=== PATIENT | male | born 1990 | race Caucasian/White ===

== ENCOUNTER 2017-07-02 15:00 | Inpatient (IN) | payer OTHER ==
[~2017-07-02] VITALS: Ht 177.8 cm; Wt 65.8 kg
--- NOTE | ~2017-07-02 | PN ---
Unit #: [id number] #: [id number] Patient: JULIANNE BETANCOURT [id number] [facility] [address] [place] [address] [id number] I MR#: [id number] NAME: JULIANNE BETANCOURT ROOM: [facility] Age: 26 Sex: M Admission Date: 07/02/2017 : 1990 Attending Physician: Conchis Hernandez M.D. Admitting Physician: Conchis Hernandez M.D. Primary Care Physician: Generic Doctor Not In System [facility] PROGRESS NOTES DATE July 05, 2017 DISCUSSION Mr. Betancourt is a 26-year-old white male, who was seen today and chart was reviewed and the case was discussed with the staff. He has been anxious, withdrawn, but has not shown any agitation, irritability, or behavioral problems, and has been compliant with the treatment recommendations and he has been taking the medications and tolerating them fairly well with no reported side effects. MENTAL STATUS EXAMINATION Young white male, who was casually dressed with fair personal hygiene and appears to be in no acute distress or discomfort. He was awake and alert with intact orientation. His mood is anxious with a congruent affect. His speech is slow and goal-directed. He denies any suicidal or homicidal ideations. His insight and judgment remain slightly impaired. TREATMENT PLAN 1. We will continue him on his current medications and treatment protocol, and will monitor his response to the medications, and make further adjustments as needed. 2. We will continue to followup. Dictated by... Fani Barr/lyssa TD: 07/06/2017 07:21 JOB #: [id number] Unit #: [id number] #: [id number] Patient: JULIANNE BETANCOURT [facility] PROGRESS NOTES Page 1 of 1 X Conchis Hernandez MD PROGRESS NOTE
--- NOTE | ~2017-07-02 | HP ---
Unit #: [id number] #: [id number] Patient: STEVE BETANCOURT [id number] [facility] [address] [place] [address] [id number] I MR#: [id number] NAME: STEVE BETANCOURT ROOM: P110 Age: 26 Sex: M Admission Date: 07/02/2017 : 1990 Attending Physician: Conchis Hernandez M.D. Admitting Physician: Conchis Hernandez M.D. Primary Care Physician: Generic Doctor Not In System HISTORY AND PHYSICAL HISTORY OF PRESENT ILLNESS Steve is a 26 year old, admitted to [address] [place] [address] because of his poly illicit substance abuse which includes benzodiazepines, amphetamines, methadone, and spice. PAST MEDICAL HISTORY Long history of illicit substance abuse. PAST SURGICAL HISTORY Nothing reported. ALLERGIES No known drug allergies. SOCIAL HISTORY He smokes one pack per day, drinks alcohol frequently, has a long history of illicit substance abuse. FAMILY HISTORY Medically noncontributory. REVIEW OF SYSTEMS CONSTITUTIONAL: No fever or chills. HEENT: Denies any sore throat, ear pain or runny nose. CARDIOVASCULAR: Denies chest pain, irregular heart rhythm or palpitations. CHEST: Denies shortness of breath or cough. No hemoptysis. GASTROINTESTINAL: Denies nausea, vomiting, diarrhea or chronic constipation. ENDOCRINE: Denies history of increased thirst or urination. No recent significant weight loss or gain. GENITOURINARY: Denies dysuria, frequency, or hematuria. SKIN: Denies any rashes. HEMATOLOGIC: Denies history of increased bleeding or bruising. MUSCULOSKELETAL: Denies any hot, swollen joints. No generalized muscle pain. NEUROLOGIC: Denies problems with vision or speech. No frequent, severe headaches. No numbness, tingling or weakness in any extremities. Denies loss of bladder or bowel control. CURRENT MEDICATIONS Detox protocol PHYSICAL EXAMINATION Unit #: [id number] #: [id number] Patient: STEVE BETANCOURT GENERAL: Alert, well-nourished, no apparent distress. VITAL SIGNS: blood pressure 120/64, heart rate 92, respirations 16, and temperature 98.6. WEIGHT: 145 pounds. HEIGHT: 5 feet 10 inches. SKIN: Warm and dry without rash or lesion. HEENT: Normocephalic. TMs not viewed. Oral and nasal passages clear. Conjunctivae clear. PERRLA. EOMs intact. NECK: Supple without lymphadenopathy or thyromegaly. HEART: Regular rate and rhythm without murmur. LUNGS: Clear. ABDOMEN: Soft, nontender. : Not done. EXTREMITIES: No evidence of cyanosis, clubbing or edema. Moves all without focal deficit. NEUROLOGICAL: Grossly within normal limits. Cranial Nerves: II: Visual mcnulty are intact. III, IV AND : Extraocular movements are intact. Pupils are equal, round and reactive to light. V: Facial sensation is grossly normal. VII: Facial movements and expression are normal. VIII: Auditory acuity grossly intact. IX, X: Uvula is midline. Phonation is normal. XI: Patient shrugs shoulders and turns head normally. XII: Tongue protrudes in the midline. Sensory and Motor Function: Sensory and motor sensation is grossly normal. Motor: moves all extremities well. Coordination: Gait is normal. Deep Tendon Reflexes: Intact. IMPRESSION Psychiatric admission. RECOMMENDATIONS Psychiatric, per psychiatrist. MEDICAL I see no contraindications to participating in facility's activities. MEDICAL PROGNOSIS Good. MEDICAL CONDITION Stable. Dictated by... Molly Cooper P.A.-C. for Fani Guzman/lyssa TD: 07/04/2017 06:35 JOB #: [id number] Unit #: [id number] #: [id number] Patient: STEVE BETANCOURT HISTORY AND PHYSICAL Page 1 of 1 X Molly Cooper HISTORY AND PHYSICAL
--- NOTE | ~2017-07-02 | PA ---
Unit #: [id number] #: [id number] Patient: JULIANNE BETANCOURT [id number] [facility] [address] [place] [address] [id number] I MR#: [id number] NAME: JULIANNE BETANCOURT ROOM: P110 Age: 26 Sex: M Admission Date: 07/02/2017 : 1990 Date of Assessment: Attending Physician: Conchis Hernandez M.D. Admitting Physician: Conchis Hernandez M.D. Primary Care Physician: Enedina Doctor Not In System PSYCHIATRIC ASSESSMENT DATE OF SERVICE 07/03/2017. IDENTIFYING DATA Mr. Betancourt is a 26-year-old single white male, who is a resident of [place], [place], and was self-referred to the hospital on a voluntary basis. CHIEF COMPLAINT "I'm not going to have a life if I keep going." HISTORY OF PRESENT ILLNESS Mr. Betancourt is a 26-year-old white male with history of mood disorder and substance abuse, who came to the hospital stating that he is ready to make a change because he is about to lose everything that he and his were due to his drug use and "I'm not going to have a life if I keep going," and the patient reports he is grieving and has almost failed marriage and lost about 20 to 30 friends due to his drug related issues in the past couple of years and does endorse increasing depression, anxiety, irritability, restlessness, poor energy level, psychomotor retardation, feelings of hopelessness and helplessness, and suicidal ideations and as such, recommendation for inpatient level of care for safety and stabilization was made. The patient was stepped up to the inpatient unit. SUBSTANCE ABUSE HISTORY The patient reports extensive history of substance abuse and dependence stating that he started with cannabis at the age of 9 and since then, he has done alcohol, cannabis, cocaine, acid, opioids, inhalants, amphetamines, benzodiazepines, synthetic drugs, and methadone, and currently, he reports that he has been using benzodiazepines including Xanax and Klonopin and Adderall as well as inhalants and has been using 3 to 4 g of cocaine as well and as such, has been decompensating. PAST PSYCHIATRIC HISTORY The patient has had history of chemical dependency treatment at [facility] in the past. Review of the medical records indicate currently is not active in treatment program, is not seeing a psychiatrist, and not taking psychotropic medications. PAST MEDICAL HISTORY No acute or chronic medical illnesses. ALLERGIES Unit #: [id number] #: [id number] Patient: JULIANNE BETANCOURT No known medication allergies. CURRENT MEDICATIONS None. PERSONAL AND SOCIAL HISTORY A 26-year-old white male, who reports that he is and and has poor social support system. MENTAL STATUS EXAMINATION Young white male, who was casually dressed with fair personal hygiene, appears to be in no acute distress or discomfort. He was awake and alert on interaction with intact orientation to time, place, and person. His mood was anxious and depressed with a congruent affect. His speech was slow and restricted in content. He reports having suicidal or homicidal ideations and also denies any auditory or visual hallucinations. His insight and judgment remain significantly impaired. DIAGNOSTIC IMPRESSION Psychiatric: Benzodiazepine dependence, moderate, and acute withdrawals; cocaine dependence, moderate; cannabis dependence, moderate; amphetamine dependence, moderate. Benzodiazepine-induced mood disorder. Medical: None. Stressors: Moderate psychosocial stressors. TREATMENT PLAN 1. The patient has presented with history of substance abuse and mood disorder, and has been decompensating and will need inpatient hospitalization for safety and stabilization. We will start him back on his home medications. We will adjust the medications and monitor response. 2. Supportive therapy was provided to the patient. 3. Safe, structured, and nourishing environment will be reported. ESTIMATED LENGTH OF STAY 5 to 7 days. ABILITY TO HELP SELF Limited. WILLINGNESS TO HELP SELF The patient appears to be willing to help self. STRENGTHS 1. Communicative. 2. Cooperative. PROBLEMS 1. Chronic dysphoric symptoms. 2. Chronic chemical dependency. 3. Poor social support system. DISCHARGE CRITERIA This will be contingent upon the patient's ability to show resolution of his depression and anxiety and his ability to stay safe to himself, particularly after discharge from the hospital. Dictated by... Unit #: [id number] #: [id number] Patient: JULIANNE BETANCOURT Fani Barr/eileen TD: 07/03/2017 07:16 JOB #: [id number] PSYCHIATRIC ASSESSMENT Page 1 of 1 X Conchis Hernandez MD PSYCHIATRIC ASSESSMENT
--- NOTE | ~2017-07-02 | PN ---
Unit #: [id number] #: [id number] Patient: JULIANNE BETANCOURT [id number] [facility] [address] [place] [address] [id number] MR#: [id number] NAME: JULIANNE BETANCOURT ROOM: [facility] Age: 26 Sex: M Admission Date: 07/02/2017 : 1990 Attending Physician: Conchis Hernandez M.D. Admitting Physician: Conchis Hernandez M.D. Primary Care Physician: Generic Doctor Not In System [facility] PROGRESS NOTES DATE OF SERVICE: 07/04/2017 SUBJECTIVE Mr. Betancourt is a 26-year-old male who was seen today and chart reviewed and discussed with the staff. He has been anxious, withdrawn and seclusive to himself, but cooperative with treatment recommendations and has been taking the medications and tolerating them fairly well with no reported side effects. MENTAL STATUS EXAMINATION Young white male, who was casually dressed with fair personal hygiene. He was awake and alert with intact orientation. His mood was anxious with a congruent affect. He denies any suicidal or homicidal ideations . TREATMENT PLAN 1. We will continue on his current medications and treatment protocol. . 2. We will continue to follow up. Dictated by... Fani Barr/eileen TD: 07/05/2017 04:20 JOB #: [id number] [facility] PROGRESS NOTES Page 1 of 1 X Conchis Hernandez MD PROGRESS NOTE
[2017-07-03 09:37] LABS: BASOPHIL% 0.5 % (0-2.5); EOSINOPHIL# 0.1 X10e3 (0-0.7); EOSINOPHIL% 1.4 % (0.0-7.0); HEMATOCRIT 45.3 % (38.0-50.0); HEMOGLOBIN 15.3 gm/dL (13.0-16.0); LYMPHOCYTE# 1.6 X10e3 (1.0-3.5); LYMPHOCYTE% 30.8 % (17.0-45.0); MEAN CELL VOLUME 89.6 FL (83-96); MEAN CORPUSCULAR HEMOGLOBIN 30.3 PG (28-34); MEAN CORPUSCULAR HGB CONC 33.8 g/dL (30-36); MEAN PLATELET VOLUME 8.9 FL (6.5-11.5); MONOCYTE# 0.5 X10e3 (0-1.0); MONOCYTE% 9.6 % (3.0-12.0); NEUTROPHIL# 2.9 X10e3 (1.5-7.1); NEUTROPHIL% 57.7 % (40-75); PLATELET COUNT 211 X10e3 (140-420); RED BLOOD COUNT 5.06 X10e (3.90-5.60); RED CELL DISTRIBUTION WIDTH 13.5 % (11.0-15.5)
[2017-07-03 09:42] LABS: DIFF IND NO
[2017-07-03 11:04] LABS: ALBUMIN SERUM 4.2 g/dL (3.5-5.0); BILIRUBIN,TOTAL 0.2 mg/dL (0.2-2.0); BUN/CREATININE RATIO 12.22; CALCIUM SERUM 9.3 mg/dL (8.4-10.2); CREATININE SERUM 0.9 mg/dL (0.6-1.4); GLOM FILT RATE Estimated 116.6 mL/min (>60); POTASSIUM 4.7 mmol/L (3.5-5.1); PROTEIN TOTAL SERUM 6.7 g/dL (6.0-8.3)
[2017-07-06 21:13] LABS: HA AB IGM (HEPPAN) Nonreactive (()); HB CORE AB IGM (HEPPAN) Nonreactive (Nonreactive); HB S AG (HEPPAN) Nonreactive (Nonreactive); HEP C AB (HEPPAN) Reactive (Nonreactive)
== END 2017-07-05 11:45 | disposition home or self-care (01) | DRG 897 ==
LOC: P1S 17:49
PROVIDERS: Psychiatry & Neurology Psychiatry
PROC: HZ2ZZZZ Detoxification Services for Substance Abuse Treatment (ICD-10-PCS; principal; 2017-07-02)
DX: F13.239 Sedative, hypnotic or anxiolytic dependence with withdrawal, unspecified (principal); F14.20 Cocaine dependence, uncomplicated; F15.20 Other stimulant dependence, uncomplicated; F12.20 Cannabis dependence, uncomplicated; F13.24 Sedative, hypnotic or anxiolytic dependence with sedative, hypnotic or anxiolytic-induced mood disorder
CPT/HCPCS: 80053; 80074; 85025; 86592; 87522; 87806